=== PATIENT | male | born 1975 | race African-American/Black ===

== ENCOUNTER 2017-08-14 06:59 | Day surgery (SDC) | payer OTHER ==
--- NOTE | 2017-08-10 09:16 | HP ---
PREOPERATIVE HISTORY AND PHYSICAL: DATE OF ADMISSION/SURGERY: 08/14/17 - [facility] DATE OF OFFICE VISIT/ENCOUNTER: 08/08/17 ATTENDING SURGEON: Betty Tuttle MD * (DICTATED BY ANABEL TREVINO) PROCEDURE: Right wrist mass excision x2. CHIEF COMPLAINT: Right wrist masses. HISTORY OF PRESENT ILLNESS: This is a 42-year-old male, who complains of 2 lumps on the dorsal aspect of his right hand, one is quite large and other one is a bit smaller. They are bothersome and he would like to have them removed. They are not painful. He does not recall any injury to the wrist. 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 He denies any numbness or tingling associated with the masses. PAST MEDICAL HISTORY: Unremarkable. PAST SURGICAL HISTORY: None. CURRENT MEDICATIONS: None. ALLERGIES: No known drug allergies. FAMILY MEDICAL HISTORY: Breast cancer, hypertension, diabetes. SOCIAL HISTORY: The patient is typically employed as a hernandez, currently laid off. He is a former smoker. He quit on 06/04/17. Prior to that, he smoked approximately a pack per week and did so for 10 to 15 years. He denies recreational drug use. He drinks alcohol on occasion, typically on the weekends. REVIEW OF SYSTEMS: General: Negative for fevers, chills, or night sweats. No known anesthesia problems. HEENT: Negative for headache, lightheadedness, or syncopal episodes. Integumentary: Negative for abrasions, lesions, or open wounds. Cardiothoracic: Negative for hypertension, chest pain, palpitations, or edema. Pulmonary: Negative for shortness of breath with exertion, chronic cough, or COPD. GI: Negative for nausea, vomiting, diarrhea, constipation, or GERD. : Negative for nocturia, urinary frequency, urgency, history of UTIs, or kidney problems. Musculoskeletal: Positive for current complaint. Neurological: Negative for paresthesias, numbness, history of seizure, stroke, or epilepsy. Endocrine: Negative for diabetes or thyroid issues. Hematologic: Negative for easy bruising, anemia, excessive bleeding, or history of DVT. Infectious Disease: Negative for history of MRSA, hepatitis C, or HIV. PHYSICAL EXAMINATION GENERAL: Well-developed, well-nourished, 42-year-old male in no acute distress. VITAL SIGNS: Height is 5 feet 8 inches, weight 236 pounds. Pulse rate 78, blood pressure 122/78. HEENT: Normocephalic, atraumatic. Pupils are equal, round, and reactive to light and accommodation. Extraocular movements are intact. NECK: Supple. No palpable lymph nodes. Throat is clear. PULMONARY: Lungs are clear to auscultation bilaterally. No wheezes, rales, or rhonchi. CARDIOVASCULAR: Regular rate and rhythm. S1 and S2. No murmurs, rubs, or gallops. No edema. ABDOMEN: Positive bowel sounds, soft, nontender. NEUROLOGICAL: Alert and oriented x3. Cranial nerves II through XII are intact. MUSCULOSKELETAL: On exam of the right wrist, he has a large multilobulated cystic mass on the dorsal aspect of the wrist. There is no tenderness to palpation. The mass is firm, subcutaneous and mobile. He has good range of motion of the fingers with flexion and extension. He has also good motion in his wrist. SKIN: Intact. Neurovascular function is intact. IMAGING STUDIES: X-rays, AP, lateral, and oblique of the right wrist show the soft tissue mass, but no bony abnormality, except for an ulnar positive variance of 3 mm proximally. IMPRESSION: Right wrist dorsal ganglions. PLAN: The patient is scheduled to undergo a right wrist mass excision x2. He will return to the office 10 to 14 days postop for followup and suture removal. A prescription for Ultracet was e-scribed to the patient's pharmacy for postoperative pain management. ANABEL TREVINO [id number]/[facility] #: [id number] MAC
[~2017-08-14 06:59] MED LIST: Buffered Lidocaine 0.9% SYRIN* 5 ML/SYR SYRINGE INTRADERM ONE; Famotidine IV* 10 MG/ML 2 ML (20 mg) IV ONE
[2017-08-14] MEDS ORDERED: Famotidine IV* 10 MG/ML 2 ML (20 mg) ONE (07:07)
[2017-08-14] MEDS ORDERED: Propofol* 10 MG/ML 20 ML BTL IV PUSH ONE (07:49)
[2017-08-14] MEDS ORDERED: Ondansetron INJ* 2 MG/ML VIAL ONE (07:49)
[2017-08-14] MEDS ORDERED: fentaNYL* 50 MCG/ML 2 ML VIAL (100 MCG VIAL) ONE (07:49)
[2017-08-14] MEDS ORDERED: Midazolam* 1 MG/ML 5 ML VIAL (5 MG) ONE (07:49)
[2017-08-14] MEDS ORDERED: Lidocaine 2% PF * 5 ML VIAL ONE (07:49)
[2017-08-14] MEDS ORDERED: Ketorolac INJ* 30 MG/ML 1 ML VIAL ONE (07:49)
[2017-08-14] MEDS ORDERED: Lidocaine 1% INJ* 10 MG/ML 30 ML SDV ONE (08:03)
[2017-08-14] MEDS ORDERED: oxyCODONE/Acetamin 5/325 MG* TAB PO PRN (08:09)
[2017-08-14] MEDS ORDERED: Naloxone* 0.4 MG/ML 1 ML VIAL IV PRN (08:09)
[2017-08-14] MEDS ORDERED: Acetaminophen TAB* 325 MG PO PRN (08:09)
[2017-08-14 09:40] VITALS: BP 152/86
--- NOTE | 2017-08-14 13:53 | OP ---
DATE OF OPERATION: 08/14/17 [facility] DATE OF : 71 SURGEON: Betty Tuttle MD GROCERY BUYER: ANABEL Francis ANESTHESIA: Local MAC. PRE-OP DIAGNOSIS: Right wrist mass. POST-OP DIAGNOSIS: Right wrist mass. OPERATIVE PROCEDURE: Right wrist ganglion. ESTIMATED BLOOD LOSS: Zero. TOURNIQUET TIME: About 20 minutes. INDICATIONS FOR PROCEDURE: Dash is a 42-year-old male with a bothersome mass on the dorsal aspect of his right wrist. He presents for removal. DESCRIPTION OF PROCEDURE: The patient was brought to the operating room, was given a sedation anesthetic and a local infiltration of 10 cc of 1% plain lidocaine on the dorsal aspect of his right hand overlying the mass. The skin of his right upper extremity was prepped and draped in the usual sterile fashion. The hand and forearm were exsanguinated and the tourniquet elevated to 250 mmHg. A longitudinal incision was made, centered over the mass. We dissected bluntly through the subcutaneous tissue. The mass was a very large multilobular ganglion cyst, was carefully dissected away from the extensor tendons and down to the dorsal wrist joint capsule, was removed with a small portion of the joint capsule and then the edges of the capsule were cauterized with the Bovie. The wound was irrigated and the skin edge was reapproximated with 4-0 nylon suture. The wound was dressed with Xeroform, 4x4, Webril, and an Rodrigo wrap. The patient tolerated the procedure well and was brought to the recovery room in good condition. [id number]/[facility] #: [id number] [facility]
== END 2017-08-14 09:40 | disposition home or self-care (01) ==
LOC: OREAST 06:59
PROVIDERS: ATTEND Orthopaedic Surgery
DX: M67.431 Ganglion, right wrist (principal); Z87.891 Personal history of nicotine dependence
CPT/HCPCS: 88304; J1885; J2250; J2405; J2704; J3010

== ENCOUNTER 2017-09-09 02:09 | Emergency (ER) | payer OTHER ==
[2017-09-09 02:42] LABS: ABS Basophils 0.1 10^3/ul (0-0.2); ABS Eosinophils 0 10^3/ul (0-0.6); ABS Lymphocytes 2.1 10^3/ul (1.0-4.8); ABS Monocytes 0.5 10^3/ul (0-0.8); ABS Neutrophils 9.6 10^3/ul (1.5-7.7); ABS Nucleated RBC 0 10^3/ul; Eosinophil % 0 % (0-6); Hematocrit 43 % (42-52); Hemoglobin 14.5 g/dl (14.0-18.0); Lymphocyte % 16.8 % (25-47); Mean Corpuscular HGB Conc 34 g/dl (31-36); Mean Corpuscular Hemoglobin 30 pg (27-31); Mean Corpuscular Volume 90 fL (80-94); Mean Platelet Volume 9.2 um3 (7.4-10.4); Nucleated Red Blood Cells % 0.1; Platelet Count 232 10^3/ul (150-450); Red Blood Count 4.78 10^6/ul (4.0-5.4); Red Cell Distribution Width 14 % (10.5-15); White Blood Count 12.3 10^3/ul (3.5-10.8)
[2017-09-09 02:46] LABS: EGFR Non-African American 63.3 (>60)
[2017-09-09] MEDS ORDERED: Metoclopramide IV* 5 MG/ML 2 ML VIAL IV SLOW PU ONE (04:44)
[2017-09-09] MEDS ORDERED: NS 0.9% 1000 ML* 1,000 ML IV ONE (04:44)
[2017-09-09] MEDS ORDERED: Morphine VIAL* 4 MG/ML VIAL (1 ml vial) IV ONE (04:45)
[2017-09-09] MEDS ORDERED: Iohexol 300* (CONTRAST) 10 ML SDV IV ONE (06:24)
--- NOTE | 2017-09-09 06:46 | ED ---
Suzanne Fernandez Emily, scribed for Chivo Rai MD on 09/09/17 at 0507 . Abdominal Pain/Male - HPI Summary HPI Summary: This patient is a 42 year old M presenting to [facility] with a chief complaint of RLQ and LLQ abd pain that began [place]OLK SPRAY DRIER. The patient rates the pain 10/10 in severity. Symptoms aggravated by nothing. Symptoms alleviated by nothing. Patient reports N/V/D. Pt reports that he believes this is food poisoning, but states the only food he has consumed recently was a homemade burrito. - History of Current Complaint Chief Complaint: EDAbdPain Stated Complaint: ABD PAIN Time Seen by Provider: 09/09/17 04:38 Hx Obtained From: Patient Onset/Duration: Sudden Onset, Lasting Hours, Still Present Timing: Constant Severity Initially: Severe Severity Currently: Severe Pain Intensity: 10 Pain Scale Used: 0-10 Numeric Location: Diffuse Aggravating Factor(s): Nothing Alleviating Factor(s): Nothing Associated Signs And Symptoms: Positive: Nausea, Vomiting, Diarrhea - Allergies/Home Medications Allergies/Adverse Reactions: Allergies Allergy/AdvReac Type Severity Reaction Status Date / Time No Known Allergies Allergy Verified 08/14/17 07:13 PMH/Surg Hx/FS Hx/Imm Hx Previously Healthy: No Musculoskeletal History: Reports: Other Musculoskeletal History Sensory History: Denies: Hx Contacts or Glasses, Hx Hearing Aid Opthamlomology History: Denies: Hx Contacts or Glasses - Surgical History Hx Anesthesia Reactions: No Infectious Disease History: No Infectious Disease History: Denies: Traveled Outside the [place] in Last 30 Days - Family History Known Family History: Positive: Hypertension - Social History Occupation: Employed Full-time Lives: With Family Alcohol Use: Occasionally Substance Use Type: Reports: None Smoking Status (MU): Former Smoker Have You Smoked in the Last Year: Yes Review of Systems Negative: Fever Positive: Abdominal Pain, Vomiting, Diarrhea, Nausea All Other Systems Reviewed And Are Negative: Yes Physical Exam - Summary Physical Exam Summary: VITAL SIGNS: Reviewed. GENERAL: ~Patient is a well-developed and nourished male who is lying comfortable in the stretcher. Patient is not in any acute respiratory distress. HEAD AND FACE: No signs of trauma. No ecchymosis, hematomas or skull depressions. No sinus tenderness. EYES: PERRLA, EOMI x 2, No injected conjunctiva, no nystagmus. EARS: Hearing grossly intact. Ear canals and tympanic membranes are within normal limits. MOUTH: Oropharynx within normal limits. NECK: Supple, trachea is midline, no adenopathy, no JVD, no carotid bruit, no c- spine tenderness, neck with full ROM. CHEST: Symmetric, no tenderness at palpation LUNGS: Clear to auscultation bilaterally. No wheezing or crackles. CVS: Regular rate and rhythm, S1 and S2 present, no murmurs or gallops appreciated. ABDOMEN: Soft, Diffuse tenderness. No signs of distention. No rebound no guarding, and no masses palpated. Bowel sounds are normal. EXTREMITIES: FROM in all major joints, no edema, no cyanosis or clubbing. NEURO: Alert and oriented x 3. No acute neurological deficits. Speech is normal and follows commands. SKIN: Dry and warm Triage Information Reviewed: Yes Vital Signs On Initial Exam: Initial Vitals Temp Pulse Resp BP Pulse Ox 98.1 F 62 16 154/82 96 09/09/17 02:12 09/09/17 02:12 09/09/17 02:12 09/09/17 02:12 09/09/17 02:12 Vital Signs Reviewed: Yes Diagnostics - Vital Signs Vital Signs Temp Pulse Resp BP Pulse Ox 09/09/17 02:12 98.1 F 62 16 154/82 96 - Laboratory Lab Results: Lab Results 09/09/17 09/09/17 09/09/17 Range/Units 02:22 02:22 02:22 WBC 12.3 H (3.5-10.8) 10^3/ul RBC 4.78 (4.0-5.4) 10^6/ul Hgb 14.5 (14.0-18.0) g/dl Hct 43 (42-52) % MCV 90 (80-94) fL MCH 30 (27-31) pg MCHC 34 (31-36) g/dl RDW 14 (10.5-15) % Plt Count 232 (150-450) 10^3/ul MPV 9.2 (7.4-10.4) um3 Neut % (Auto) 77.8 (38-83) % Lymph % (Auto) 16.8 L (25-47) % Sioux % (Auto) 4.3 (0-7) % Eos % (Auto) 0 (0-6) % Baso % (Auto) 1.1 (0-2) % Absolute Neuts (auto) 9.6 H (1.5-7.7) 10^3/ul Absolute Lymphs (auto) 2.1 (1.0-4.8) 10^3/ul Absolute Monos (auto) 0.5 (0-0.8) 10^3/ul Absolute Eos (auto) 0 (0-0.6) 10^3/ul Absolute Basos (auto) 0.1 (0-0.2) 10^3/ul Absolute Nucleated RBC 0 10^3/ul Nucleated RBC % 0.1 Sodium 133 L (139-145) mmol/L Potassium 3.9 (3.5-5.0) mmol/L Chloride 97 L (101-111) mmol/L Carbon Dioxide 25 (22-32) mmol/L Anion Gap 11 (2-11) mmol/L BUN 14 (6-24) mg/dL Creatinine 1.24 H (0.67-1.17) mg/dL Est GFR ( Amer) 81.4 (>60) Est GFR (Non-Af Amer) 63.3 (>60) BUN/Creatinine Ratio 11.3 (8-20) Glucose 153 H (70-100) mg/dL Lactic Acid 2.0 (0.5-2.0) mmol/L Calcium 9.8 (8.6-10.3) mg/dL Total Bilirubin 1.20 H (0.2-1.0) mg/dL AST 28 (13-39) U/L ALT 32 (7-52) U/L Alkaline Phosphatase 44 (34-104) U/L C-Reactive Protein 3.65 (< 5.00) mg/L Total Protein 8.8 (6.4-8.9) g/dL Albumin 5.0 (3.2-5.2) g/dL Globulin 3.8 (2-4) g/dL Albumin/Globulin Ratio 1.3 (1-3) Lipase < 10 L (11.0-82.0) U/L Result Diagrams: 09/09/17 02:22 09/09/17 02:22 Lab Statement: Any lab studies that have been ordered have been reviewed, and results considered in the medical decision making process. Abdominal Pain Fem Course/Dx - Course Course Of Treatment: This patient is a 42 year old M presenting to [facility] with a chief complaint of RLQ and LLQ abd pain that began Y[place]K SPRAY DRIER. Pt will be signed out to Dr. Haynes upon shift change pending CT report and disposition - Diagnoses Provider Diagnoses: Abdominal pain Discharge - Sign-Out/Discharge Documenting (check all that apply): Sign-Out Patient Signing out patient TO: Pantera Haynes - Discharge Plan Condition: Stable Discharge Disposition Comment: Sign out to Dr. Haynes upon shift change pending CT report and dispo Referrals: No Primary Care Phys,NOPCP [Primary Care Provider] - The documentation as recorded by the Suzanne monique Emily accurately reflects the service I personally performed and the decisions made by me, Chivo Rai MD.
[2017-09-09 06:47] VITALS: BP 135/90
--- NOTE | 2017-09-09 08:00 | RAD ---
INDICATION: Abdominal pain. COMPARISON: There are no prior studies available for comparison. TECHNIQUE: A CT scan of the abdomen and pelvis was performed with intravenous and oral contrast following intravenous injection of 143 ml of Omnipaque 300 nonionic contrast. Contiguous axial sections were obtained from the lung bases through the symphysis pubis. Images were reconstructed in the coronal and sagittal planes. FINDINGS: The lung bases are clear. No pleural effusion is present. The liver and spleen are normal in size. The liver is decreased in attenuation consistent with fatty infiltration. No focal normality is seen. No calcified gallstones are noted. The pancreas appears to be within normal limits. The kidneys and adrenal glands are normal in size. No hydronephrosis is seen. No significant focal renal abnormality is seen. The aorta is normal in caliber and demonstrates homogeneous contrast opacification. No significant enlarged retroperitoneal lymph nodes are seen. The stomach, small and large bowel appear nondistended. The appendix is within normal limits. Note is made of a couple cecal diverticuli and a few scattered diverticuli within the sigmoid colon. There is no evidence for diverticulitis. There is suggesting of mild circumferential thickening of the wall of the ascending and transverse colon possibly indicating mild colitis. No free intraperitoneal air or fluid is seen. There is mild focal sclerosis present in the superior portions of the femoral heads suspicious for developing osteonecrosis less likely osteoarthritis. The results of this examination were discussed with Dr. Haynes. IMPRESSION: 1. MILD THICKENING OF THE WALL OF THE ASCENDING AND TRANSVERSE COLON SUGGESTING THE POSSIBILITY OF COLITIS. 2. HEPATIC STEATOSIS. 3. POSSIBLE BILATERAL AVASCULAR NECROSIS OF THE FEMORAL HEADS. THIS COULD BE FURTHER EVALUATED WITH AN MRI OF THE HIPS.
--- NOTE | 2017-09-09 08:39 | ED ---
Progress - Progress Note Progress Note: PATIENT SEEN BY DR PETERSON THIS AM AND DISCHARGED. DR WILSON, RADIOLOGY CALLED WITH [facility] [place] CT READ. HE READS POSSIBLE COLITIS AND B/L HIP AVASCULAR NECROSIS. Course/Dx - Course Course Of Treatment: I CALLED THIS AM AND SPOKE WITH MR ROLLINS'S PARTNER. I TOLD HER OF THE POSSIBLE COLITIS AND AVASCULAR NECROSIS. SHE WILL TELL MR ROLLINS AND PLAN TO F/U WITH HIS PMD, DR KNOWLES. I ALSO DISCUSSED RETURNING TO THE ED IF WORSE OR NO IMPROVEMENT. - Diagnoses Provider Diagnoses: Abdominal pain Discharge - Sign-Out/Discharge Documenting (check all that apply): Discharge/Admit/Transfer - Discharge Plan Condition: Stable Disposition: HOME Patient Education Materials: Gastroenteritis (ED) Referrals: No Primary Care Phys,NOPCP [Medical Doctor] - - Billing Disposition and Condition Condition: STABLE Disposition: HOME
== END 2017-09-09 07:30 | disposition home or self-care (01) ==
LOC: ED 02:09
DX: R10.84 Generalized abdominal pain (principal); R11.2 Nausea with vomiting, unspecified; R19.7 Diarrhea, unspecified; Z87.891 Personal history of nicotine dependence
CPT/HCPCS: 36415; 74177; 80053; 83605; 83690; 85025; 86140; 96374; 96375; 99282; J2270; J2765; Q9967

== ENCOUNTER 2017-10-01 00:54 | Emergency (ER) | payer OTHER ==
[2017-10-01] MEDS ORDERED: NS 0.9% 1000 ML* 2,000 ML IV ONE (01:53)
[2017-10-01] MEDS ORDERED: Metoclopramide IV* 5 MG/ML 2 ML VIAL IV ONE (01:53)
[2017-10-01] MEDS ORDERED: Pantoprazole IV* 40 MG IV ONE (01:53)
[2017-10-01] MEDS ORDERED: Diphenoxylat/Atrop 2.5-0.025M* 1 TAB PO ONE (01:54)
[2017-10-01] MEDS ORDERED: Morphine INJ* 4 MG/ML 1 ML CARPUJECT IV ONE (01:54)
[2017-10-01] MEDS ORDERED: Morphine VIAL* 4 MG/ML VIAL (1 ml vial) IV ONE (02:10)
[2017-10-01 02:18] LABS: ABS Basophils 0.1 10^3/ul (0-0.2); ABS Eosinophils 0 10^3/ul (0-0.6); ABS Lymphocytes 1.5 10^3/ul (1.0-4.8); ABS Monocytes 0.3 10^3/ul (0-0.8); ABS Neutrophils 7.3 10^3/ul (1.5-7.7); ABS Nucleated RBC 0 10^3/ul; Eosinophil % 0 % (0-6); Hematocrit 44 % (42-52); Hemoglobin 14.8 g/dl (14.0-18.0); Lymphocyte % 16.1 % (25-47); Mean Corpuscular HGB Conc 34 g/dl (31-36); Mean Corpuscular Hemoglobin 31 pg (27-31); Mean Corpuscular Volume 91 fL (80-94); Mean Platelet Volume 9.2 um3 (7.4-10.4); Nucleated Red Blood Cells % 0; Platelet Count 219 10^3/ul (150-450); Red Cell Distribution Width 14 % (10.5-15); White Blood Count 9.3 10^3/ul (3.5-10.8)
[2017-10-01 02:33] LABS: EGFR Non-African American 67.7 (>60)
--- NOTE | 2017-10-01 03:33 | ED ---
Greg Fernandez Rebecca, scribed for Chivo Rai MD on 10/01/17 at 0154 . Abdominal Pain/Male - HPI Summary HPI Summary: Pt is a 42 y/o M who presents to ED c/o abdominal pain with N/V/D. 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 Abdominal pain is in the bilateral lower abdomen and on triage was severe, ranked 10/10. Sx aggravated and alleviated by nothing. Notes that his last episode of emesis contained blood. Reports eating fresh jerk chicken last night. - History of Current Complaint Chief Complaint: EDNauseaVomitDiarrh Stated Complaint: V/D Time Seen by Provider: 10/01/17 01:45 Hx Obtained From: Patient Onset/Duration: Lasting Hours, Still Present Severity Currently: Severe Pain Intensity: 10 Pain Scale Used: 0-10 Numeric Location: Other - Bilateral lower abdomen Aggravating Factor(s): Nothing Alleviating Factor(s): Nothing Associated Signs And Symptoms: Positive: Nausea, Vomiting, Diarrhea - Allergies/Home Medications Allergies/Adverse Reactions: Allergies Allergy/AdvReac Type Severity Reaction Status Date / Time No Known Allergies Allergy Verified 08/14/17 07:13 PMH/Surg Hx/FS Hx/Imm Hx Endocrine/Hematology History: Denies: Hx Diabetes Cardiovascular History: Denies: Hx Hypertension History: Denies: Hx Renal Disease Musculoskeletal History: Reports: Other Musculoskeletal History Sensory History: Denies: Hx Contacts or Glasses, Hx Hearing Aid Opthamlomology History: Denies: Hx Contacts or Glasses - Surgical History Hx Anesthesia Reactions: No Infectious Disease History: No Infectious Disease History: Denies: Traveled Outside the [place] in Last 30 Days - Family History Known Family History: Positive: Hypertension - Social History Alcohol Use: Occasionally Substance Use Type: Reports: None Smoking Status (MU): Former Smoker Have You Smoked in the Last Year: Yes Review of Systems Negative: Fever Positive: Abdominal Pain, Vomiting, Diarrhea, Nausea All Other Systems Reviewed And Are Negative: Yes Physical Exam - Summary Physical Exam Summary: VITAL SIGNS: Reviewed. GENERAL: ~Patient is a well-developed and nourished male who is lying comfortable in the stretcher. Patient is not in any acute respiratory distress. HEAD AND FACE: No signs of trauma. No ecchymosis, hematomas or skull depressions. No sinus tenderness. EYES: PERRLA, EOMI x 2, No injected conjunctiva, no nystagmus. EARS: Hearing grossly intact. Ear canals and tympanic membranes are within normal limits. MOUTH: Oropharynx within normal limits. NECK: Supple, trachea is midline, no adenopathy, no JVD, no carotid bruit, no c- spine tenderness, neck with full ROM. CHEST: Symmetric, no tenderness at palpation LUNGS: Clear to auscultation bilaterally. No wheezing or crackles. CVS: Regular rate and rhythm, S1 and S2 present, no murmurs or gallops appreciated. ABDOMEN: Soft, non-tender. No signs of distention. No rebound no guarding, and no masses palpated. Bowel sounds are normal. EXTREMITIES: FROM in all major joints, no edema, no cyanosis or clubbing. NEURO: Alert and oriented x 3. No acute neurological deficits. Speech is normal and follows commands. SKIN: Dry and warm Triage Information Reviewed: Yes Vital Signs On Initial Exam: Initial Vitals Temp Pulse Resp BP Pulse Ox 96.5 F 64 20 162/105 97 10/01/17 00:55 10/01/17 00:55 10/01/17 00:55 10/01/17 00:55 10/01/17 00:55 Vital Signs Reviewed: Yes Diagnostics - Vital Signs Vital Signs Temp Pulse Resp BP Pulse Ox 10/01/17 00:55 96.5 F 64 20 162/105 97 - Laboratory Result Diagrams: 10/01/17 02:06 10/01/17 02:06 Lab Statement: Any lab studies that have been ordered have been reviewed, and results considered in the medical decision making process. Re-Evaluation - Re-Evaluation First Eval Re-Evaluation Time: 03:17 Change: Improved Comment: Discussed results and D/C. 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 Notes that his last episode of emesis contained blood. Reports eating fresh jerk chicken last night. Blood work was done. In the ED course, pt received Lomotil, Reglan, Protonix, Morphine and fluids which improved sx. Pt will be D/C to home with Dx of gastroenteritis with a follow up with his PCP and Rx for Reglan. He understands and agrees. - Diagnoses Provider Diagnoses: Gastroenteritis Discharge - Sign-Out/Discharge Documenting (check all that apply): Discharge/Admit/Transfer - Discharge - Discharge Plan Condition: Stable Disposition: HOME Prescriptions: Metoclopramide TAB* [Reglan TAB*] 10 mg PO Q6H PRN #20 tab PRN Reason: Nausea/Vomiting Patient Education Materials: Gastroenteritis (ED) Referrals: Vikas Dickerson MD [Primary Care Provider] - 3 Days Additional Instructions: RETURN TO ED FOR ANY NEW OR WORSENING SYMPTOMS. The documentation as recorded by the Greg monique Rebecca accurately reflects the service I personally performed and the decisions made by , Chivo Rai MD.
[2017-10-01 05:54] VITALS: BP 154/97
== END 2017-10-01 06:17 | disposition home or self-care (01) ==
LOC: ED 00:54
DX: K52.9 Noninfective gastroenteritis and colitis, unspecified (principal); Z87.891 Personal history of nicotine dependence
CPT/HCPCS: 36415; 80053; 82150; 83690; 83735; 85025; 86140; 96361; 96374; 96375; 99283; A9270-GY; J2270; J2765

== ENCOUNTER 2018-02-18 10:08 | Emergency (ER) | payer OTHER ==
[2018-02-18 10:34] VITALS: BP 147/90
--- NOTE | 2018-02-18 12:13 | RAD ---
INDICATION: Left rib injury. COMPARISON: Comparison is made with a prior chest x-ray study from January 26, 2015. TECHNIQUE: 5 views of the left ribs and dual-energy PA views of the chest were obtained. FINDINGS: There is a slightly displaced fracture of the left lateral eighth rib. No other fractures are seen. There is minimal atelectasis at the left lung base. The lungs are otherwise clear. No pneumothorax or pleural effusion is seen. The heart is within normal limits in size. Mediastinal contours appear normal. IMPRESSION: SLIGHTLY DISPLACED FRACTURE OF THE LEFT LATERAL EIGHTH RIB.
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
== END 2018-02-18 12:49 | disposition home or self-care (01) ==
LOC: UCEAST 10:08
DX: S22.32XA Fracture of one rib, left side, initial encounter for closed fracture (principal); F17.210 Nicotine dependence, cigarettes, uncomplicated; W50.1XXA Accidental kick by another person, initial encounter; Y92.9 Unspecified place or not applicable
CPT/HCPCS: 99212; G0463

== ENCOUNTER 2019-02-06 08:59 | Emergency (ER) | payer BC, OTHER ==
[2019-02-06 09:19] VITALS: BP 144/74
--- NOTE | 2019-02-06 10:12 | UC ---
Hand/Wrist HPI - HPI Summary HPI Summary: Patient presents to urgent care for evaluation of a cyst on his left wrist with pain into his thumb. Patient's right-hand dominant. Patient with a history of ganglion cyst. Dr. Severino removal from his right wrist. Patient states that he' s had for approximately 6 months. Patient states more recently, all last week, he's had some radiation to the thumb. No weakness. Patient has taken 600 mg of Motrin intermittently with mild improving. No fevers or chills. No redness. Patient is currently laid off from work. Medications reviewed this visit. - History Of Current Complaint Chief Complaint: UCUpperExtremity Stated Complaint: LUMP ON WRIST Time Seen by Provider: 02/06/19 10:06 Hx Obtained From: Patient ?: No Onset/Duration: Gradual Onset Severity Initially: Moderate Severity Currently: Moderate Pain Intensity: 7 - Allergies/Home Medications Allergies/Adverse Reactions: Allergies Allergy/AdvReac Type Severity Reaction Status Date / Time No Known Allergies Allergy Verified 02/06/19 09:20 PMH/Surg Hx/FS Hx/Imm Hx Previously Healthy: Yes - Surgical History Surgical History: None - Family History Known Family History: Positive: Hypertension, Non-Contributory - Social History Occupation: Unemployed Lives: With Family Alcohol Use: Weekly Substance Use Type: None Smoking Status (MU): Light Every Day Tobacco Smoker Type: Cigarettes Have You Smoked in the Last Year: Yes When Did the Patient Quit Smoking/Using Tobacco: 2018 Review of Systems All Other Systems Reviewed And Are Negative: Yes Constitutional: Positive: Negative Skin: Positive: Other - Cyst on left wrist Neurological: Positive: Paresthesia Is Patient Immunocompromised?: No Physical Exam - Summary Physical Exam Summary: Vital Signs Reviewed: Yes A+Ox3, no distress Eyes: Conjunctiva Clear ENT: Hearing grossly normal neck: supple Respiratory: Positive: No respiratory distress, No accessory muscle use Cardiovascular: skin color reflect adequate perfusion 2+ radial, 2+ ulnar CBT < 2 sec all digits Musculoskeletal Exam: HOWELL x 4 without difficulty full AROM elbow, wrist Neurological: Positive: Alert, ambulatory without difficulty + thumb up, a ok, finger cross, finger spread Psychological: Positive: Normal Response To examiner Skin: Positive: no rash, no ecchymosis, pt with apparent ganglion cyst left hand - 2x1cm, no erythema, drainage, mild discomfort Vital Signs: Initial Vital Signs Temp 97.4 F 02/06/19 09:15 Pulse 63 02/06/19 09:15 Resp 18 02/06/19 09:15 BP 144/74 02/06/19 09:15 Pulse Ox 100 02/06/19 09:15 Hand/Wrist Course/Dx - Course Course Of Treatment: Patient presents to urgent care for evaluation of discomfort related to getting consistent with left arm. Patient states he's had it for approximately 6 months. Patient reports radiation to his left thumb. Patient's right-hand dominant. Patient has taken some Motrin with little improvement. On exam vital signs are stable. Patient was apparently lives the dorsum of his left distal forearm. Patient with good range of motion and strength in all fingers. Patient good cap refill. Will place patient in thumb spica. Motrin for pain. Recommendation follow up with Dr. Param singh previously removed from his right hand. Patient states understanding agreement with plan. BP mildly elevated- history of similar - Differential Dx/Diagnosis Provider Diagnosis: Ganglion cyst of finger of left hand Discharge ED - Sign-Out/Discharge Documenting (check all that apply): Patient Departure All imaging exams completed and their final reports reviewed: No Studies - Discharge Plan Condition: Stable Disposition: HOME Patient Education Materials: Ganglion Cysts (ED) Referrals: Vikas Dickerson MD [Primary Care Provider] - Betty Tuttle MD [Medical Doctor] - Additional Instructions: -wear splint for comfort and support - Okay to alternate ibuprofen (Advil, Motrin) and Tylenol (acetaminophen) every 3 hours for pain or fever. Take with food. Do NOT take for more than 4-5 days. - Contact Dr. Tuttle to schedule an appointment for further evaluation and treatment plan - Billing Disposition and Condition Condition: STABLE Disposition: Home
== END 2019-02-06 10:25 | disposition home or self-care (01) ==
LOC: UCEAST 08:59
DX: M67.442 Ganglion, left hand (principal); F17.210 Nicotine dependence, cigarettes, uncomplicated
CPT/HCPCS: 99212; G0463

== ENCOUNTER → 2019-02-18 09:48 | Day surgery (SDC) | payer BC ==
--- NOTE | 2019-02-12 14:49 | HP ---
PREOPERATIVE HISTORY AND PHYSICAL: DATE OF SURGERY/ADMISSION: 02/18/19 [facility] DATE OF OFFICE VISIT/ENCOUNTER: 02/10/19 ATTENDING SURGEON: Betty Tuttle MD.* (DICTATED BY ANABEL TREVINO) PROCEDURE: Ganglion cyst excision, left wrist. HISTORY OF PRESENT ILLNESS: This is a 43-year-old male who has a lump on the dorsal aspect of his left wrist that has been present for approximately 2 weeks. He denies any injury to the wrist. He denies any numbness or tingling. He in the past had a ganglion cyst excised from his right wrist by Dr. Tuttle and did well well with that. He is now interested in having the left wrist cyst removed surgically. PAST MEDICAL HISTORY: Unremarkable. PAST SURGICAL HISTORY: Right wrist ganglion cyst excision. CURRENT MEDICATIONS: None. ALLERGIES: No known drug allergies. FAMILY HISTORY: Breast cancer, hypertension, diabetes. SOCIAL HISTORY: The patient is typically employed as a hernandez, but currently laid off. He is a current smoker of approximately 4 to 5 cigarettes per day. He denies recreational drug use. He drinks alcohol on occasion. REVIEW OF SYSTEMS: Negative for general, cephalic, cardiovascular, respiratory , GI, , other musculoskeletal, integumentary, endocrine, neurologic, and hematologic symptoms. Infectious Disease: Negative for MRSA, hepatitis C, and HIV. PHYSICAL EXAMINATION GENERAL: Well-developed, well-nourished 43-year-old male in no acute distress. VITAL SIGNS: Height 5 feet 8 inches, weight 236 pounds, pulse rate 78, blood pressure 136/78. HEENT: Normocephalic, atraumatic. Pupils are equal, round, and reactive to light and accommodation. Extraocular movements are intact. Throat is clear. NECK: Supple. No palpable lymph nodes. PULMONARY: Lungs are clear to auscultation bilaterally. No wheezes, rales, or rhonchi. CARDIOVASCULAR: Regular rate and rhythm. S1 and S2. No murmurs, rubs, or gallops. No edema. ABDOMEN: Positive bowel sounds. Soft and nontender. NEUROLOGICAL: Alert and oriented x3. Cranial nerves II through XII are intact. Sensation is intact to light touch. MUSCULOSKELETAL: On exam of his left wrist, there is a cystic mass at the dorsal aspect of the radial carpal joint. It is tender to palpation. He has good range of motion, but pain in the wrist at the extreme of extension. He can make a full fist. Skin is intact. Neurovascular function is intact. IMAGING STUDIES: AP, lateral and oblique of the left wrist showed no bony abnormality IMPRESSION: Let dorsal wrist ganglion. PLAN: The patient is scheduled to undergo a ganglion cyst excision, left wrist with Dr. Tuttle on 02/18/19. He will return to the office 10 days postoperative for followup and suture removal. A prescription for tramadol was e-scribed to the patient's pharmacy for postoperative pain management. ANABEL TREVINO [id number]/[facility] #: [id number] MAC
[~2019-02-18 09:48] MED LIST changes: -Buffered Lidocaine 0.9% SYRIN* 5 ML/SYR SYRINGE INTRADERM ONE; +Buffered Lidocaine 1% SYRIN* 1 ML/SYRINGE INTRADERM ONE; -Famotidine IV* 10 MG/ML 2 ML (20 mg) IV ONE; +Ibuprofen TAB* 600 MG ONE; +Lactated Ringers 1000 ML Bag* 1,000 ML IV SCH; +Lidocaine 1% INJ* 10 MG/ML 30 ML SDV ONE; +Midazolam* 1 MG/ML 2 ML VIAL (2 MG) ONE; +Naloxone* 0.4 MG/ML 1 ML VIAL IV PRN; +fentaNYL* 50 MCG/ML 2 ML VIAL (100 MCG VIAL) ONE
[2019-02-18 12:32] VITALS: BP 134/96
--- NOTE | 2019-02-18 22:02 | OP ---
DATE OF OPERATION: 02/18/19 [facility] DATE OF : [birth year] SURGEON: Betty Tuttle MD FLIGHT ENGINEER INSPECTOR: ANABEL Francis ANESTHESIA: Local MAC. PRE-OP DIAGNOSIS: Left wrist ganglion cyst. POST-OP DIAGNOSIS: Left wrist ganglion cyst. OPERATIVE PROCEDURE: Removed left wrist ganglion cyst. INDICATIONS: Dash is a 43-year-old male who has a painful mass on the dorsal aspect of his left wrist. He presents for removal. ESTIMATED BLOOD LOSS: Zero. TOURNIQUET TIME: About 15 minutes. DESCRIPTION OF PROCEDURE: The patient was brought to the operating room, was given a sedation anesthetic and a local infiltration of 10 cc of 1% plain lidocaine on the dorsal aspect of his left wrist. The skin of his left upper extremity was prepped and draped in the usual sterile fashion. The hand and forearm were exsanguinated and the tourniquet elevated to 250 mmHg. A transverse incision was made centered over the mass. We dissected bluntly through the subcutaneous tissue. The extensor tendons were retracted by the ophthalmology surgical technician, Rebecca Ott. The mass was traced down with its stalk to the dorsal aspect of the radiocarpal joint and its connection to the scapholunate ligament. It was removed with a portion of the dorsal wrist capsule and then the edges of the capsule and the dorsal aspect of the scapholunate ligament were cauterized with Bovie. The wound was irrigated and the skin edges reapproximated with 4-0 nylon suture. The wound was dressed with Xeroform, 4x4, Webril, and an Rodrigo wrap. The patient tolerated the procedure well and was brought to the recovery room in good condition. [id number]/[facility] #: [id number] [facility]
== END | disposition home or self-care (01) ==
LOC: OREAST 09:48
PROVIDERS: ATTEND Orthopaedic Surgery
DX: M67.432 Ganglion, left wrist (principal); F17.210 Nicotine dependence, cigarettes, uncomplicated; J45.909 Unspecified asthma, uncomplicated
CPT/HCPCS: 88304; A9270-GY; J2250; J3010

== ENCOUNTER 2019-03-16 07:09 | Emergency (ER) | payer BC ==
--- NOTE | 2019-03-16 07:14 | UC ---
UC General HPI - HPI Summary HPI Summary: Pleasant 43 yo gentleman c/o n/v/abd pain, starting yesterday. Has not been able to keep anything down since yesterday. No fever. + chills. No rash. No cough / sob / cp. No dysuria, but less urination since sx started. No melena / brbrr, stool reports as yellow green watery. No hx abd sx No DM - History of Current Complaint Stated Complaint: VOMITING Time Seen by Provider: 03/16/19 07:12 Hx Obtained From: Patient - Allergy/Home Medications Allergies/Adverse Reactions: Allergies Allergy/AdvReac Type Severity Reaction Status Date / Time No Known Allergies Allergy Verified 03/16/19 07:18 Home Medications: Home Medications traMADol TAB* [Ultram*] 50 mg PO Q6HR PRN 03/16/19 [History Confirmed 03/16/19] PMH/Surg Hx/FS Hx/Imm Hx Previously Healthy: Yes - Surgical History Surgical History: Yes Surgery Procedure, Year, and Place: right wrist ganglion cyst removed. tonsillectomy - Family History Known Family History: Positive: Hypertension, Non-Contributory - Social History Alcohol Use: Occasionally Substance Use Type: None Smoking Status (MU): Light Every Day Tobacco Smoker Type: Cigarettes Amount Used/How Often: 4 cigarettes a day maybe Have You Smoked in the Last Year: Yes When Did the Patient Quit Smoking/Using Tobacco: 2018 Review of Systems All Other Systems Reviewed And Are Negative: Yes Constitutional: Positive: Fatigue Skin: Positive: Negative Eyes: Positive: Negative ENT: Positive: Other - mmdry Respiratory: Positive: Negative Cardiovascular: Positive: Negative Gastrointestinal: Positive: Other - see hpi Genitourinary: Positive: Other - see hpi Motor: Positive: Negative Neurovascular: Positive: Negative Musculoskeletal: Positive: Negative Neurological: Positive: Negative Psychological: Positive: Negative Is Patient Immunocompromised?: No Physical Exam Triage Information Reviewed: Yes Appearance: Well-Nourished, Pain Distress Vital Signs Reviewed: Yes Eye Exam: Normal ENT: Positive: TM dull, Other - mm dry Neck exam: Normal Neck: Positive: Supple, Nontender Respiratory Exam: Normal Respiratory: Positive: Chest non-tender, Lungs clear, Normal breath sounds, No respiratory distress Cardiovascular Exam: Normal Cardiovascular: Positive: RRR, No Murmur, Pulses Normal, Brisk Capillary Refill Abdominal Exam: Other - +hypoactive bs mild distended, soft, voluntary guarding Tender morgan BUQ's, some radiation R flank (?) No ada cvat Musculoskeletal Exam: Normal Musculoskeletal: Positive: Strength Intact - moves x 4 ext's Neurological Exam: Normal - grossly nonfocal Psychological Exam: Normal - conversing easily and appropriately. Course/Dx - Course Course Of Treatment: Acute abd pain, volume depletion. Recommend eval /tx in ED. D/w pt, he expresses understanding and agreement. He agrees to go via EMS. Reviewed urine dip in APERA BAGS. Dry, + micro blood. IV ordered, zofran po administered. Spoke with Dee extension service specialist in charge nurse at ED 19:50 - Diagnoses Provider Diagnosis: Dehydration, Acute abdominal pain Discharge ED - Sign-Out/Discharge Documenting (check all that apply): Patient Departure All imaging exams completed and their final reports reviewed: No Studies - Discharge Plan Condition: Guarded Disposition: ADMITTED TO [facility] Patient Education Materials: Dehydration (ED), Acute Abdominal Pain (ED) Referrals: Vikas Dickerson MD [Primary Care Provider] - - Billing Disposition and Condition Condition: GUARDED Disposition: Admitted to [facility]
--- OUTSIDE RECORDS SUMMARY | 2019-03-16 07:14 | XMS REPORT | Continuity of Care Document ---
:1975 External Reference #:[id number] Author Name Betty Tuttle M.D. 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 Tablets as needed pain For use after surgery Tramadol 1 tab by mouth 15tabs Betty Tuttle, 08/08/2017 Hydrochloride/Acetami every 4-6 hours M.D. nophen as needed pain 37.5-325mg Tablets Immunizations Description No Information Available Vital Signs Date Vital Result Comment 02/27/2019 9:59am Height 68 inches 5'8" Weight 236.00 lb BP Systolic 138 mmHg BP Diastolic 100 mmHg Respiratory Rate 16 /min Body Temperature 96.4 F Pain Level 7 BMI (Body Mass Index) 35.9 kg/m2 02/10/2019 10:04am Height 68 inches 5'8" Weight 236.00 lb Heart Rate 78 /min BP Systolic 136 mmHg BP Diastolic 78 mmHg Respiratory Rate 14 /min Pain Level 8 BMI (Body Mass Index) 35.9 kg/m2 Results Test Date Facility Test Result H/L Range Note Surgical 02/18/2019 [facility] Surgical SEE RESULT 1, [address] Pathology BELOW [place], [place] [id number] [phone] PDFReport [id number] <SEE NOTE> 1 [id number] 2 SEE RESULT BELOW Name: KIRAN ZHANG : [address]: Betty Tuttle MD Acct: [id number] Unit: [id number] AGE: 43 Location: [facility] Re02/18/19 SEX: M [place] [facility] [place]C: [id number] NORBERTO: 02/18/19- SUBM DR: Betty Tuttle MD REQ: [id number] RECD: 02/18/19 STATUS: SOUT _ ORDERED: LEVEL 3 COMMENTS: [id number] FINAL DIAGNOSIS Wrist, left, excision: -- Ganglion cyst. PRE-OPERATIVE DIAGNOSIS Ganglion left wrist GROSS DESCRIPTION The specimen is received in formalin labeled, Ganglion Left Wrist, and consists of a 1.9 x 1.2 x 1.0 cm griffith-white to pink shaggy rubbery fibrous tissue fragment. The cut surface is rubbery griffith-pink with scant mucus. The specimen is inked, serially sectioned and energy conservation representative sections are submitted in one cassette. Signed by and Reported on: Marcie Lopez MD 02/19/19 1420 END OF REPORT DEPARTMENT OF PATHOLOGY, [address] [place] [address] Curtis Muller M.D. Director [facility] # [id number] Procedures Date Code Description Status 02/18/2019 84476 Excision Ganglion Wrist/ Dorsal Or Volar; Primary Completed 02/18/201989290 Excision Ganglion Wrist/ Dorsal Or Volar; Primary Completed Medical Devices Description No Information Available Encounters Type Date Location Provider Dx Diagnosis Office Visit 02/10/2019 [facility] Ramakrishna [email or web address] Ganglion, left 9:30a at [place] wrist Assessments Date Code Description Provider 02/27/2019 [place] Ganglion, left wrist Betty Tuttle M.D. 02/18/2019 [email or web address] Ganglion, left wrist LEDY Francis 02/18/2019 [facility]ba, left wrist Betty Tuttle M.D. 02/10/2019 [place] Alba, left wrist Betty Tuttle M.D. Plan of Treatment Future Appointment(s):03/20/2019 9:30 am - LEDY Francis at [facility] at [id number]/27/2019 - [id number] Ganglion, left wristFollow up:Follow up: 3 weeks Functional Status Description No Information Available Mental Status Description No Information Available Referrals Description No Information Available
--- OUTSIDE RECORDS SUMMARY | 2019-03-16 07:14 | XMS REPORT | Continuity of Care Document ---
:1975 External Reference #:[id number] Author Name Betty Tuttle M.D. (transmitted by agent of provider Melchor Jimneez) Address [address] [place] [address] Care Team Providers Name Role Phone Patient's Choice Care Team Information Identification Clerk Unavailable Problems Description No Active Problems Social History Type Date Description Comments Sex Unknown ETOH Use Occasionally consumes alcohol Tobacco Use Start: Unknown End: Patient is a former smoker Unknown Smoking Status Reviewed: 02/10/19 Patient is a former smoker Exercise Type/Frequency Exercises regularly Allergies, Adverse Reactions, Alerts Description No Known Drug Allergies Medications Active Medications SIG Qnty Indications Ordering Provider Date Tramadol 1 tab by mouth 15tabs Betty Tuttle, 08/08/2017 Hydrochloride/Acetami every 4-6 hours M.D. nophen as needed pain 37.5-325mg Tablets Immunizations Description No Information Available Vital Signs Date Vital Result Comment 02/10/2019 10:04am Height 68 inches 5'8" Weight 236.00 lb Heart Rate 78 /min BP Systolic 136 mmHg BP Diastolic 78 mmHg Respiratory Rate 14 /min Pain Level 8 BMI (Body Mass Index) 35.9 kg/m2 09/12/2017 9:00am Height 68 inches 5'8" Weight 234.00 lb Heart Rate 72 /min BP Systolic 122 mmHg BP Diastolic 70 mmHg Respiratory Rate 16 /min Body Temperature 98.6 F Pain Level 0 BMI (Body Mass Index) 35.6 kg/m2 Results Description No Information Available Procedures Description No Information Available Medical Devices Description No Information Available Encounters Description No Information Available Assessments Date Code Description Provider 02/10/2019 [id number] Ganglion, left wrist Betty Tuttle M.D. Plan of Treatment Future Appointment(s):02/27/2019 9:45 am - Betty Tuttle M.D. at [facility] at [id number]/10/2019 - Betty Tuttle M.D.M67.432 Ganglion, left wristFollow up:Follow up: 10-14 days postop Functional Status Description No Information Available Mental Status Description No Information Available Referrals Description No Information Available
[2019-03-16] MEDS ORDERED: Ondansetron ODT TAB* 4 MG PO ONE (07:36)
[2019-03-16] MEDS ORDERED: NS 0.9% 1000 ML** 1,000 ML IV ONE (07:53)
[2019-03-16 08:06] VITALS: BP 140/70
== END 2019-03-16 08:18 | disposition short-term general hospital (02) ==
LOC: UCEAST 07:09
DX: E86.0 Dehydration (principal); R10.9 Unspecified abdominal pain; F17.210 Nicotine dependence, cigarettes, uncomplicated; R11.2 Nausea with vomiting, unspecified; R53.83 Other fatigue
CPT/HCPCS: 81003; 96360; 99213; A9270-GY; G0463

== ENCOUNTER 2019-03-16 08:36 | Emergency (ER) | payer BC ==
[2019-03-16] MEDS ORDERED: Morphine 4 MG/ML VIAL (1 ml) 4 MG/ML VIAL IV ONE (08:50)
[2019-03-16] MEDS ORDERED: Ondansetron INJ* 2 MG/ML VIAL IV ONE (08:50)
[2019-03-16] MEDS ORDERED: NS 0.9% 1000 ML** 1,000 ML IV ONE ×2 (08:51→10:09)
--- NOTE | 2019-03-16 08:54 | ED ---
Abdominal Pain/Male - HPI Summary HPI Summary: Patient is a 43-year-old male who presents emergency department for vomiting, diarrhea and abdominal pain that started yesterday. Patient denies sick contacts or recent travels. He believes he may have gotten food poisoning from Indian food. Symptoms are moderate in severity. No current modifying factors. Patient denies past medical history. - History of Current Complaint Chief Complaint: EDAbdPain Stated Complaint: VOMITING PER EMS Time Seen by Provider: 03/16/19 08:42 Hx Obtained From: Patient Pain Intensity: 8 - Allergies/Home Medications Allergies/Adverse Reactions: Allergies Allergy/AdvReac Type Severity Reaction Status Date / Time No Known Allergies Allergy Verified 03/16/19 07:18 PMH/Surg Hx/FS Hx/Imm Hx Previously Healthy: Yes Endocrine/Hematology History: Denies: Hx Diabetes Cardiovascular History: Denies: Hx Hypertension Respiratory History: Reports: Hx Asthma - as a child-, only problem as an adult is when gets a cold History: Denies: Hx Renal Disease Musculoskeletal History: Reports: Other Musculoskeletal History Sensory History: Denies: Hx Contacts or Glasses, Hx Hearing Aid Opthamlomology History: Denies: Hx Contacts or Glasses - Cancer History Hx Chemotherapy: No - Surgical History Surgery Procedure, Year, and Place: right wrist ganglion cyst removed. tonsillectomy Hx Anesthesia Reactions: No Infectious Disease History: No Infectious Disease History: Denies: Traveled Outside the [place] in Last 30 Days - Family History Known Family History: Positive: Hypertension, Non-Contributory - Social History Occupation: Employed Full-time Lives: With Family Alcohol Use: Occasionally Substance Use Type: Reports: None Hx Tobacco Use: Yes Smoking Status (MU): Light Every Day Tobacco Smoker Type: Cigarettes Amount Used/How Often: 4 cigarettes a day maybe Have You Smoked in the Last Year: Yes Review of Systems Constitutional: Negative Negative: Fever Cardiovascular: Negative Respiratory: Negative Positive: Abdominal Pain, Vomiting, Diarrhea, Nausea Genitourinary: Negative Neurological: Negative All Other Systems Reviewed And Are Negative: Yes Physical Exam Triage Information Reviewed: Yes Vital Signs On Initial Exam: Initial Vitals Temp Pulse Resp BP Pulse Ox 99.4 F 64 18 141/75 96 03/16/19 08:44 03/16/19 08:44 03/16/19 08:44 03/16/19 08:44 03/16/19 08:44 Vital Signs Reviewed: Yes Appearance: Positive: Pain Distress - Pt. lying on his left side with eyes closed. Appears in pain but nontoxic. Skin: Positive: Warm, Dry Head/Face: Positive: Normal Head/Face Inspection Eyes: Positive: Normal, EOMI Neck: Positive: Supple Respiratory/Lung Sounds: Positive: Clear to Auscultation, Breath Sounds Present Cardiovascular: Positive: Normal, RRR Abdomen Description: Positive: Other: - Abd. is slightly distended and diffusely tender with majority of pain to RLQ with guarding. Neurological: Positive: Normal, CN Intact II-III Psychiatric: Positive: Affect/Mood Appropriate Procedures - Sedation Patient Received Moderate/Deep Sedation with Procedure: No Diagnostics - Vital Signs Vital Signs Temp Pulse Resp BP Pulse Ox 03/16/19 08:44 99.4 F 64 18 141/75 96 - Laboratory Result Diagrams: 03/16/19 08:58 03/16/19 08:58 Lab Statement: Any lab studies that have been ordered have been reviewed, and results considered in the medical decision making process. Abdominal Pain Male Course/Dx - Course Course Of Treatment: Patient with vomiting, diarrhea and significant abdominal pain. He is afebrile with stable vital signs. Patient started on IV fluids, pain medication and Zofran. CBC shows leukocytosis of 13.9, lactic acid 2.4, magnesium 1.4. Given patient's pain leukocytosis CT scan obtained for further evaluation and rule out inflammatory/infectious causes. CT scan per radiology is negative for acute findings. Patient was given a total of 2 L of IV fluids and 2 g of IV mag. 1205: Reexamination patient is sleeping comfortably. He is feeling much better and is tolerating by mouth fluids. Suspect viral etiology. We'll discharge patient home with prescription for Zofran. Advised close follow-up with PCP for recheck in 2-3 days. We'll return to the ER if symptoms change or worsen. Patient understands and agrees with plan. - Diagnoses Differential Diagnosis/HQI/PQRI: Appendicitis, Bowel Obstruction, Constipation, Diverticulitis, Gall Bladder Disease, Pancreatitis Provider Diagnoses: Gastroenteritis Discharge ED - Sign-Out/Discharge Documenting (check all that apply): Patient Departure - Discharge Plan Condition: Improved Disposition: HOME Prescriptions: Ondansetron TAB* [Zofran 4 MG Tab*] 4 mg PO Q6H PRN #12 tab PRN Reason: Nausea Patient Education Materials: Dehydration (ED), Gastroenteritis (ED), Hypomagnesemia (ED) Referrals: Vikas Dickerson MD [Primary Care Provider] - Additional Instructions: Follow up with PCP in 2-3 days for recheck Zofran as directed Increase fluids with water, gatorade Return to ER if symptoms change or worsen - Billing Disposition and Condition Condition: IMPROVED Disposition: Home - Attestation Statements Provider Attestation: I was available for consultation for this patient. I did not evaluate the patient or participate in any medical decision making or disposition decisions unless I am specifically named in the chart as having consulted on the patient. If I have consulted on the patient, please see my own ED note on the patient encounter. Lydia Mcmanus MD
[2019-03-16 09:07] LABS: ABS Basophils 0.1 10^3/ul (0-0.2); ABS Lymphocytes 1.6 10^3/ul (1.0-4.8); ABS Monocytes 1.2 10^3/ul (0-0.8); ABS Neutrophils 10.9 10^3/ul (1.5-7.7); Hematocrit 43 % (42-52); Hemoglobin 14.3 g/dL (14.0-18.0); Lymphocyte % 11.4 %; Mean Corpuscular HGB Conc 34 g/dL (31-36); Mean Corpuscular Hemoglobin 30 pg (27-31); Mean Corpuscular Volume 90 fL (80-94); Mean Platelet Volume 8.7 fL (7.4-10.4); Platelet Count 224 10^3/uL (150-450); Red Blood Count 4.73 10^6 /uL (4.18-5.48); Red Cell Distribution Width 14 % (10-15); White Blood Count 13.9 10^3/uL (3.5-10.8)
[2019-03-16 09:21] LABS: ALT 29 U/L (7-52); AST 24 U/L (13-39); Albumin 4.6 g/dL (3.2-5.2); Albumin/Globulin Ratio 1.4 (1-3); Alkaline Phosphatase 55 U/L (34-104); Anion Gap 9 mmol/L (2-11); BUN/Creatinine Ratio 11.4 (8-20); Blood Urea Nitrogen 13 mg/dL (6-24); C Reactive Protein 5.97 mg/L (<8.01); CO2 Carbon Dioxide 29 mmol/L (22-32); Calcium 9.5 mg/dL (8.6-10.3); Chloride 98 mmol/L (101-111); EGFR African American 84.1 (>60); EGFR Non-African American 69.5 (>60); Globulin 3.4 g/dL (2-4); Glucose 117 mg/dL (70-100); Magnesium 1.4 mg/dL (1.9-2.7); Potassium 3.8 mmol/L (3.5-5.0); Sodium 136 mmol/L (135-145)
[2019-03-16] MEDS ORDERED: Iohexol 300* (CONTRAST) 10 ML SDV IV ONE (09:38)
[2019-03-16] MEDS ORDERED: Magnesium Sulfate 2 GM IV* 2 GM/50 ML BAG IVPB ONE (10:07)
[2019-03-16 12:20] VITALS: BP 139/80
== END 2019-03-16 12:37 | disposition home or self-care (01) ==
LOC: ED 08:36
DX: K52.9 Noninfective gastroenteritis and colitis, unspecified (principal); K76.0 Fatty (change of) liver, not elsewhere classified; R10.31 Right lower quadrant pain; F17.210 Nicotine dependence, cigarettes, uncomplicated
CPT/HCPCS: 36415; 74177; 80053; 83605; 83690; 83735; 85025; 86140; 96361; 96365; 96375; 99283; J2270; J2405; J3475; Q9967

== ENCOUNTER 2019-03-17 10:46 | Emergency (ER) | payer BC ==
[2019-03-17] MEDS ORDERED: Ondansetron ODT TAB* 4 MG PO ONE (10:57)
[2019-03-17] MEDS ORDERED: NS 0.9% 1000 ML** 1,000 ML IV ONE (11:37)
--- NOTE | 2019-03-17 11:39 | UC ---
Abdominal Pain Male HPI - HPI Summary HPI Summary: 43 yo man, assessed here yesterday and sent to the ER with vomiting and abdominal pain. CT scan of the abdomen showed fatty liver, but no acute abdominal findings. Labs showed mild elevation of WBC, mild increase in lactic acid, and serum magnesium of 1.4. Following rehydration in the ER, he improved last evening, ate some rice and meat last night. This morning he has recurrent retching and vomiting and a sense of discomfort in the upper abdomen, "like ai have to get it out". Last voided in the night, Had one loose stool this morning. and has had dry heaves with some bright red blood and clear fluids bill up. This morning he has had about 8 ounces of water and some juice. - History of Current Complaint Chief Complaint: UCAbdominalPain Stated Complaint: ABD PAIN Time Seen by Provider: 03/17/19 10:57 Hx Obtained From: Patient Onset/Duration: Sudden Onset, Lasting Days - 2 Timing: Intermittent Episodes Lasting: Severity Currently: Moderate Pain Intensity: 10 Location: Epigastric Radiates: No Character: Cramping Aggravating Factor(s): Nothing Alleviating Factor(s): Rest Associated Signs And Symptoms: Positive: Decreased Appetite, Nausea, Vomiting, Diarrhea - Allergies/Home Medications Allergies/Adverse Reactions: Allergies Allergy/AdvReac Type Severity Reaction Status Date / Time No Known Allergies Allergy Verified 03/17/19 10:56 PMH/Surg Hx/FS Hx/Imm Hx Previously Healthy: Yes - Surgical History Surgical History: Yes Surgery Procedure, Year, and Place: right wrist ganglion cyst removed. tonsillectomy - Family History Known Family History: Positive: Hypertension, Non-Contributory - Social History Occupation: Employed Full-time Lives: With Family Alcohol Use: Occasionally Substance Use Type: None Smoking Status (MU): Light Every Day Tobacco Smoker Type: Cigarettes Amount Used/How Often: 4 cigarettes a day maybe Have You Smoked in the Last Year: Yes When Did the Patient Quit Smoking/Using Tobacco: 2018 Review of Systems All Other Systems Reviewed And Are Negative: Yes Constitutional: Positive: Fatigue Skin: Positive: Negative Eyes: Positive: Negative ENT: Positive: Negative Respiratory: Positive: Negative Cardiovascular: Positive: Negative Gastrointestinal: Positive: Vomiting, Nausea Genitourinary: Positive: Negative Motor: Positive: Negative Neurovascular: Positive: Negative Musculoskeletal: Positive: Negative Neurological: Negative: Headache, Weakness Psychological: Positive: Negative Is Patient Immunocompromised?: No Physical Exam Triage Information Reviewed: Yes Appearance: Well-Nourished, Pain Distress - moderate Vital Signs: Initial Vital Signs Temp 96.4 F 03/17/19 10:49 Pulse 59 03/17/19 10:49 Resp 16 03/17/19 10:49 BP 155/84 03/17/19 10:49 Pulse Ox 99 03/17/19 10:49 Eye Exam: Normal ENT Exam: Other - moist mucous membranes. ENT: Positive: Pharynx normal, TMs normal Neck: Positive: Supple, Nontender, No Lymphadenopathy Respiratory: Positive: Lungs clear, Normal breath sounds Cardiovascular: Positive: RRR, No Murmur Abdominal Exam: Other - mild epigastric tenderness. Abdomen Description: Positive: No Organomegaly, Soft, Other: - Re-examined at 12 :55 decreased bowel sounds and mild increase in abdominal distention.. Negative : CVA Tenderness (R), CVA Tenderness (L) Bowel Sounds: Positive: Present Musculoskeletal Exam: Normal Neurological Exam: Normal Psychological Exam: Normal Skin Exam: Normal - no tenting Re-Evaluation - Re-Evaluation First Eval Re-Evaluation Time: 12:20 Change: Unchanged Second Eval Re-Evaluation Time: 12:55 Change: Worse Comment: no relief with toradol and abdominal exam shows increased bloating and firmness. Abd Pain Male Course/Dx - Course Course Of Treatment: He has had iv fluids, zofran and iv toradol with continued retching. He has worsening pain and increase in abdominal distention. Discussed and will transfer to ER via ambulance. - Differential Dx/Clinical Impression Differential Diagnosis/HQI/PQRI: Bowel Obstruction, Gall Bladder Disease, Pancreatitis Provider Diagnosis: Abdominal pain - Physician Notification/Consults Discussed Patient Care With: Christos Rosales Time Discussed With Above Provider: 12:55 Discharge ED - Sign-Out/Discharge Documenting (check all that apply): Patient Departure All imaging exams completed and their final reports reviewed: No Studies - Discharge Plan Condition: Guarded Disposition: TRANS HIGHER LVL OF CARE FAC Referrals: Vikas Dickerson MD [Primary Care Provider] - - Billing Disposition and Condition Condition: GUARDED Disposition: Trans Higher Lvl of Care Fac
[2019-03-17] MEDS ORDERED: Ketorolac INJ* 30 MG/ML 1 ML VIAL IV ONE (12:14)
[2019-03-17 13:09] VITALS: BP 157/104
== END 2019-03-17 13:25 | disposition short-term general hospital (02) ==
LOC: UCEAST 10:46
DX: R10.13 Epigastric pain (principal); R11.2 Nausea with vomiting, unspecified; R19.7 Diarrhea, unspecified; R63.8 Other symptoms and signs concerning food and fluid intake; F17.210 Nicotine dependence, cigarettes, uncomplicated
CPT/HCPCS: 96360; 96374; 99213; A9270-GY; G0463; J1885

== ENCOUNTER 2019-03-17 13:45 | Emergency (ER) | payer BC ==
[2019-03-17] MEDS ORDERED: HYDROmorphone INJ1* 1 MG/ML SYRINGE IV SLOW PU ONE (14:22)
[2019-03-17] MEDS ORDERED: Ondansetron INJ* 2 MG/ML VIAL IV ONE (14:22)
--- NOTE | 2019-03-17 14:28 | ED ---
Abdominal Pain/Male - HPI Summary HPI Summary: Pt is a 43 y/o M presenting to the ED with a chief complaint of abd pain initially onset a couple of days ago. He came here yesterday, 03/16/19, and felt better when he was sent home. This morning, his abd pain came back on and is worse than yesterday. The pain is located in the epigastrium described as pressure, and in the umbilical region described as pain. He also reports nausea and vomiting. He notes his sx worsen with deep breaths. Denies fever. - History of Current Complaint Chief Complaint: EDAbdPain Stated Complaint: ABDOMINAL PAIN PER EMS Time Seen by Provider: 03/17/19 13:58 Hx Obtained From: Patient Onset/Duration: Gradual Onset, Lasting Days, Still Present Timing: Constant, Lasting Days Severity Initially: Moderate Severity Currently: Severe Pain Intensity: 10 Pain Scale Used: 0-10 Numeric Location: Epigastric, Umbilical Character: Other: - pressure Aggravating Factor(s): Deep Breaths Alleviating Factor(s): Nothing Associated Signs And Symptoms: Positive: Nausea, Vomiting. Negative: Fever - Allergies/Home Medications Allergies/Adverse Reactions: Allergies Allergy/AdvReac Type Severity Reaction Status Date / Time No Known Allergies Allergy Verified 03/17/19 10:56 Home Medications: Home Medications NK [No Home Medications Reported] 03/17/19 [History Confirmed 03/17/19] PMH/Surg Hx/FS Hx/Imm Hx Previously Healthy: Yes Endocrine/Hematology History: Denies: Hx Diabetes Cardiovascular History: Denies: Hx Hypertension Respiratory History: Reports: Hx Asthma - as a child-, only problem as an adult is when gets a cold History: Denies: Hx Renal Disease Musculoskeletal History: Reports: Other Musculoskeletal History Sensory History: Denies: Hx Contacts or Glasses, Hx Hearing Aid Opthamlomology History: Denies: Hx Contacts or Glasses - Cancer History Hx Chemotherapy: No - Surgical History Surgery Procedure, Year, and Place: right wrist ganglion cyst removed. tonsillectomy Hx Anesthesia Reactions: No Infectious Disease History: No Infectious Disease History: Denies: Traveled Outside the [place] in Last 30 Days - Family History Known Family History: Positive: Hypertension - Social History Alcohol Use: Occasionally Hx Substance Use: No Substance Use Type: Reports: None Hx Tobacco Use: Yes Smoking Status (MU): Light Every Day Tobacco Smoker Type: Cigarettes Amount Used/How Often: 4 cigarettes a day maybe Have You Smoked in the Last Year: Yes Review of Systems Negative: Fever Positive: Abdominal Pain, Vomiting, Nausea All Other Systems Reviewed And Are Negative: Yes Physical Exam Triage Information Reviewed: Yes Vital Signs On Initial Exam: Initial Vitals Temp Pulse Resp BP Pulse Ox 98.0 F 53 22 173/100 95 03/17/19 13:48 03/17/19 13:48 03/17/19 13:48 03/17/19 13:48 03/17/19 13:48 Vital Signs Reviewed: Yes Procedures - Sedation Patient Received Moderate/Deep Sedation with Procedure: No Diagnostics - Vital Signs Vital Signs Temp Pulse Resp BP Pulse Ox 03/17/19 13:51 54 173/100 96 03/17/19 13:48 98.0 F 53 22 173/100 95 - Laboratory Result Diagrams: 03/17/19 14:34 03/17/19 14:34 Lab Statement: Any lab studies that have been ordered have been reviewed, and results considered in the medical decision making process. Abdominal Pain Male Course/Dx - Course Course Of Treatment: Mr. Zhang returned today with the return of his pain. Yesterday when he returned home from the emergency department he felt completely improved. This morning it recurred. He comes in retching and complaining of diffuse abdominal pain. He's also diffusely tender reason nontoxic in appearance with stable vitals. He is given pain medication and antinausea medicine in the form of Dilaudid and Zofran. Labs are within normal limits and he cannot completely improved with the medication and a liter of fluid. He does admit that he ate an enormous amount when he went home last night because he had not eaten all day and he was finally feeling better. He attributes today's episode to that. I recommended he follow-up or return if problems continue or worsen. - Diagnoses Provider Diagnoses: Abdominal pain Discharge ED - Sign-Out/Discharge Documenting (check all that apply): Patient Departure - Discharge Plan Condition: Stable Disposition: HOME Patient Education Materials: Acute Abdominal Pain (ED) Referrals: Vikas Dickerson MD [Primary Care Provider] - Additional Instructions: Please follow up with your primary care provider within the next 1-3 days. Return to the emergency department with any new or worsening symptoms. - Billing Disposition and Condition Condition: STABLE Disposition: Home - Attestation Statements Document Initiated by Bobe: Yes Documenting Scribe: Nataliia Gunn Provider For Whom Scribe is Documenting (Include Credential): Christos Rosales MD. Scribe Attestation: Nataliia Fernandez, scribed for Christos Rosales MD. on 03/17/19 at 1906. Scribe Documentation Reviewed: Yes Provider Attestation: The documentation as recorded by the scribe, Nataliia Gunn accurately reflects the service I personally performed and the decisions made by me, Christos Rosales MD. Status of Scribe Document: Viewed
[2019-03-17 14:44] LABS: ABS Lymphocytes 1.3 10^3/ul (1.0-4.8); ABS Monocytes 0.4 10^3/ul (0-0.8); ABS Neutrophils 5.7 10^3/ul (1.5-7.7); Hematocrit 41 % (42-52); Hemoglobin 13.9 g/dL (14.0-18.0); Lymphocyte % 17.6 %; Mean Corpuscular HGB Conc 34 g/dL (31-36); Mean Corpuscular Hemoglobin 31 pg (27-31); Mean Corpuscular Volume 90 fL (80-94); Mean Platelet Volume 8.8 fL (7.4-10.4); Nucleated Red Blood Cells % 0.1; Platelet Count 214 10^3/uL (150-450); Red Blood Count 4.52 10^6 /uL (4.18-5.48); Red Cell Distribution Width 13 % (10-15); White Blood Count 7.5 10^3/uL (3.5-10.8)
[2019-03-17 14:59] LABS: ALT 30 U/L (7-52); AST 28 U/L (13-39); Albumin 4.3 g/dL (3.2-5.2); Albumin/Globulin Ratio 1.4 (1-3); Alkaline Phosphatase 47 U/L (34-104); Anion Gap 5 mmol/L (2-11); BUN/Creatinine Ratio 10.7 (8-20); Blood Urea Nitrogen 13 mg/dL (6-24); C Reactive Protein 2.36 mg/L (<8.01); CO2 Carbon Dioxide 30 mmol/L (22-32); Chloride 102 mmol/L (101-111); EGFR African American 78.5 (>60); EGFR Non-African American 64.8 (>60); Globulin 3.1 g/dL (2-4); Glucose 128 mg/dL (70-100); Potassium 3.7 mmol/L (3.5-5.0); Sodium 137 mmol/L (135-145); Total Protein 7.4 g/dL (6.4-8.9)
[2019-03-17 15:54] VITALS: BP 118/73
== END 2019-03-17 16:30 | disposition home or self-care (01) ==
LOC: ED 13:45
DX: R10.9 Unspecified abdominal pain (principal); F17.210 Nicotine dependence, cigarettes, uncomplicated
CPT/HCPCS: 36415; 80053; 83605; 83690; 85025; 86140; 96374; 96375; 99283; J1170; J2405

== ENCOUNTER 2019-03-18 12:30 | Emergency (ER) | payer BC ==
[2019-03-18 13:06] VITALS: BP 167/100
--- NOTE | 2019-03-18 13:46 | UC ---
Abdominal Pain Male HPI - HPI Summary HPI Summary: 43 yo male presents with abdominal pain and vomiting. He has been seen here and yesterday 03/17 for this same issue and was sent to the hospital each time. He tells me that workup there has been normal and the only thing that relieved his vomiting and discomfort was dilaudid. He has been taking zofran and tried IVF with reglan with no relief. He states that he feels food and poop are stuck in his belly. Has not eaten today. Last BM was this morning, but was small and hard. Denies fever, SOB, chest pain, back pain. - History of Current Complaint Chief Complaint: UCAbdominalPain Stated Complaint: ABDOMINAL PAIN AND NAUSEA Time Seen by Provider: 03/18/19 13:46 Hx Obtained From: Patient Onset/Duration: Sudden Onset Severity Initially: Severe Severity Currently: Severe Pain Intensity: 8 Pain Scale Used: 0-10 Numeric - Allergies/Home Medications Allergies/Adverse Reactions: Allergies Allergy/AdvReac Type Severity Reaction Status Date / Time No Known Allergies Allergy Verified 03/18/19 13:06 Home Medications: Home Medications Ondansetron HCl [Zofran 4 MG TAB] 1 tab PO ONCE PRN 03/18/19 [History Confirmed 03/18/19] PMH/Surg Hx/FS Hx/Imm Hx - Additional Past Medical History Additional PMH: None - Surgical History Surgical History: Yes Surgery Procedure, Year, and Place: right wrist ganglion cyst removed. tonsillectomy - Family History Known Family History: Positive: Hypertension - Social History Lives: With Family Alcohol Use: Occasionally Substance Use Type: None Smoking Status (MU): Light Every Day Tobacco Smoker Type: Cigarettes Amount Used/How Often: 2 cigarettes a day maybe Have You Smoked in the Last Year: Yes When Did the Patient Quit Smoking/Using Tobacco: 2018 Household Exposure Type: Cigarettes Review of Systems All Other Systems Reviewed And Are Negative: No Constitutional: Positive: Negative Skin: Positive: Negative Respiratory: Positive: Negative Cardiovascular: Positive: Negative Gastrointestinal: Positive: Abdominal Pain, Vomiting, Nausea Genitourinary: Positive: Negative Neurovascular: Positive: Negative Neurological: Positive: Negative Psychological: Positive: Negative Physical Exam - Summary Physical Exam Summary: GENERAL: Mild pain distress. SKIN: No rashes, sores, lesions, or open wounds. NECK: Supple. Nontender. No lymphadenopathy. CHEST: CTAB. No r/r/w. No accessory muscle use. Breathing comfortably and in no distress. CV: RRR. Pulses intact. Cap refill <2seconds ABDOMEN: Soft. NTTP. No distention or guarding. No organomegaly. No CVA tenderness. Bowel sounds present NEURO: Alert. PSYCH: Age appropriate behavior. Triage Information Reviewed: Yes Vital Signs: Initial Vital Signs Temp 97.9 F 03/18/19 13:03 Pulse 57 03/18/19 13:03 Resp 18 03/18/19 13:03 BP 167/100 03/18/19 13:03 Pulse Ox 100 03/18/19 13:03 Vital Signs Reviewed: Yes Abd Pain Male Course/Dx - Course Course Of Treatment: Offered IVF and nausea medication in the clinic, but pt declined and is asking for dilaudid. I discussed with him that we do not have medication of that magnitude here and that is likely masking his symptoms. He asked his son to drive him to the ER. Pt eloped. - Differential Dx/Clinical Impression Provider Diagnosis: Vomiting Discharge ED - Sign-Out/Discharge Documenting (check all that apply): Patient Departure All imaging exams completed and their final reports reviewed: No Studies - Discharge Plan Condition: Stable Disposition: ELOPEMENT Referrals: Vikas Dickerson MD [Primary Care Provider] - Additional Instructions: Please go to the ER for further evaluation for your abdominal pain - Billing Disposition and Condition Condition: STABLE Disposition: Elopement
== END 2019-03-18 13:50 | disposition home or self-care (01) ==
LOC: UCEAST 12:30
DX: R11.2 Nausea with vomiting, unspecified (principal); R10.9 Unspecified abdominal pain; F17.210 Nicotine dependence, cigarettes, uncomplicated
CPT/HCPCS: 99212; G0463

== ENCOUNTER 2019-03-18 14:08 | Emergency (ER) | payer BC ==
[2019-03-18] MEDS ORDERED: NS 0.9% 1000 ML** 1,000 ML IV ONE (15:37)
[2019-03-18] MEDS ORDERED: Famotidine IV* 10 MG/ML 2 ML (20 mg) IV SLOW PU ONE (15:37)
[2019-03-18] MEDS ORDERED: Ketorolac INJ* 30 MG/ML 1 ML VIAL IV PUSH ONE (15:37)
[2019-03-18] MEDS ORDERED: Ondansetron INJ* 2 MG/ML VIAL IV ONE (15:37)
[2019-03-18] MEDS ORDERED: Morphine INJ* 4 MG/ML 1 ML SYRINGE (NEW SYRINGE VERSION) IV ONE (15:38)
--- NOTE | 2019-03-18 15:42 | ED ---
Abdominal Pain/Male - HPI Summary HPI Summary: Pt is a 43 y/o M presenting to the ED with a chief complaint of abd pain, accompanied by nausea, vomiting, and diarrhea. Pt has been here 3x for the same sx, including subjective fever and chills. He has taken some Zofran but it has not stayed down. He denies SOB. Patient was in the emergency department the last 2 days. Patient did have a CT scan on 03/16/19 showed nothing concerning. Patient has not taken any analgesia. He last drank alcohol this past weekend , and occasionally smokes cigarettes. He denies trauma to the abd. He states continues to send him here d/t not being able to treat him there. NKDA. Pts medications reviewed this visit. - History of Current Complaint Chief Complaint: EDAbdPain Stated Complaint: ABD PAIN/VOMITING/DIARREA PER PT Time Seen by Provider: 03/18/19 15:26 Hx Obtained From: Patient, Medical Records Onset/Duration: Sudden Onset, Lasting Hours, Still Present Timing: Intermittent, Lasting Hours Severity Initially: Moderate Severity Currently: Severe Pain Intensity: 8 Pain Scale Used: 0-10 Numeric Location: Discrete At: RLQ, Discrete At: LLQ Radiates: No Aggravating Factor(s): Nothing Alleviating Factor(s): Medications Associated Signs And Symptoms: Positive: Fever, Nausea, Vomiting, Diarrhea - Allergies/Home Medications Allergies/Adverse Reactions: Allergies Allergy/AdvReac Type Severity Reaction Status Date / Time No Known Allergies Allergy Verified 03/18/19 14:13 PMH/Surg Hx/FS Hx/Imm Hx Previously Healthy: Yes Endocrine/Hematology History: Denies: Hx Diabetes Cardiovascular History: Denies: Hx Hypertension Respiratory History: Reports: Hx Asthma - as a child-, only problem as an adult is when gets a cold History: Denies: Hx Renal Disease Musculoskeletal History: Reports: Other Musculoskeletal History Sensory History: Denies: Hx Contacts or Glasses, Hx Hearing Aid Opthamlomology History: Denies: Hx Contacts or Glasses - Cancer History Hx Chemotherapy: No - Surgical History Surgery Procedure, Year, and Place: right wrist ganglion cyst removed. tonsillectomy Hx Anesthesia Reactions: No Infectious Disease History: No Infectious Disease History: Denies: Traveled Outside the [place] in Last 30 Days - Family History Known Family History: Positive: Hypertension, Non-Contributory - Social History Occupation: Employed Full-time - construction Lives: With Family - daycare Alcohol Use: Occasionally Hx Substance Use: No Substance Use Type: Reports: None Hx Tobacco Use: Yes Smoking Status (MU): Light Every Day Tobacco Smoker Type: Cigarettes Amount Used/How Often: 2 cigarettes a day maybe Have You Smoked in the Last Year: Yes Review of Systems Positive: Fever, Chills Negative: Shortness Of Breath Positive: Abdominal Pain, Vomiting, Diarrhea, Nausea All Other Systems Reviewed And Are Negative: Yes Physical Exam - Summary Physical Exam Summary: Vital Signs Reviewed: Yes A+Ox3, wretching, Eyes: Conjunctiva Clear, ADAL. EOM intact and full ENT: Hearing grossly normal TM x 2 clear, mmoist, uvula midline, no exudate, no erythema Neck: Positive: Supple Respiratory: Positive: No respiratory distress, No accessory muscle use + CTA throughout no w/r Cardiovascular: RRR nl s1, s2 no m/r CBT <2 sec abd soft + BS nd, mild epigastric, RUQ pain no guarding, no rebound Musculoskeletal Exam: HOWELL x 4 without difficulty Strength Intact, ROM Intact Neurological: Positive: Alert, + sensation throughout Psychological: Positive: Normal Response To examiner Skin: Positive: no rash, no ecchymosis Triage Information Reviewed: Yes Vital Signs On Initial Exam: Initial Vitals Temp Pulse Resp BP Pulse Ox 98.5 F 57 16 178/98 98 03/18/19 14:09 03/18/19 14:09 03/18/19 14:09 03/18/19 14:09 03/18/19 14:09 Vital Signs Reviewed: Yes Procedures - Sedation Patient Received Moderate/Deep Sedation with Procedure: No Diagnostics - Vital Signs Vital Signs Temp Pulse Resp BP Pulse Ox 03/18/19 14:09 98.5 F 57 16 178/98 98 - Laboratory Result Diagrams: 03/18/19 15:50 03/18/19 15:52 Lab Statement: Any lab studies that have been ordered have been reviewed, and results considered in the medical decision making process. - Ultrasound US Abd Ultrasound Interpretation Completed By: Radiologist Summary of Ultrasound Findings: Fatty infiltration of the liver. ED physician has reviewed this report. Re-Evaluation - Re-Evaluation 1st re-eval Re-Evaluation Time: 16:19 Change: Improved Comment: Pt states he is feeling much better. pain improved. no further vomiting. no current needs. son in room at bedside 2nd re-eval Re-Evaluation Time: 17:29 Change: Improved Comment: Pt will be providing a urine sample. Will give prescription for Pepcid and Zofran. Pt has Tramadol Rx at home. pt comfortable and in agreement with plan Third Eval Re-Evaluation Time: 18:05 Comment: urine removed. no vomiting with po crackers, ice chips. will discharge Abdominal Pain Male Course/Dx - Course Course Of Treatment: Patient presents to urgent care for evaluation of epigastric pain with nausea and vomiting. Patient seen in the ED twice for the same symptoms. Patient states he is given a prescription of Zofran but was not ODT and therefore he was throwing up. Patient has not taken anything for pain. Patient's reports tactile fevers. No rash no sick contacts no trauma. Vital signs stable. Patient actively retching in the room. Patient with mild epigastric and Klonopin. Review the labs as well as imaging studies from . We will give patient Pepcid, Toradol, Zofran, and morphine. Discussed with patient will only redose morphine once during this hospital stay for total of 2 doses. Patient stated understanding and agreement. Willl check ultrasound for RUQ pain - Diagnoses Provider Diagnoses: Nausea & vomiting, Epigastric pain Discharge ED - Sign-Out/Discharge Documenting (check all that apply): Patient Departure - Discharge Plan Condition: Stable Disposition: HOME Prescriptions: Famotidine TAB* [Pepcid 20 MG TAB*] 20 mg PO DAILY #12 tab Ondansetron ODT TAB* [Zofran 4 MG Odt TAB*] 4 mg PO Q4H PRN #10 tab.odt PRN Reason: Nausea Forms: *Work Release Referrals: Vikas Dickerson MD [Primary Care Provider] - [facility] [Outside] Additional Instructions: - For the first 6 hours, eat and drink clears (water, kallie dalila, soup broth, jello, popsicles, Gatorade). If you tolerate this okay, add bland foods such as dry toast, scrambled eggs, crackers. Wait until you are feeling better for 24 hours before eating spicy food, acidic food, tomato based food, fried food. - Avoid alcohol until you are feeling better - Okay to take Tramadol as you have previously prescribed for pain - Take pepcid twice daily as prescribed - Take nausea medication as prescribed - Contact your doctor tomorrow to schedule a follow-up appointment this week. If you are unable to get an appointment, contact the [facility] for an appointment - Billing Disposition and Condition Condition: STABLE Disposition: Home - Attestation Statements Document Initiated by Jackie: Yes Documenting Scribe: Nataliia Gunn Provider For Whom Jackie is Documenting (Include Credential): Iraida Lopez MD. Scribe Attestation: INataliia, scribed for Iraida Lopez MD. on 03/18/19 at 1833. Scribe Documentation Reviewed: Yes Provider Attestation: The documentation as recorded by the Nataliia monique accurately reflects the service I personally performed and the decisions made by me, Iraida Lopez MD. Status of Scribe Document: Viewed
[2019-03-18] MEDS ORDERED: Morphine 4 MG/ML VIAL (1 ml) 4 MG/ML VIAL ONE (15:52)
[2019-03-18] MEDS ORDERED: Morphine 4 MG/ML VIAL (1 ml) 4 MG/ML VIAL IV ONE (15:53)
[2019-03-18 16:54] LABS: ABS Lymphocytes 1.9 10^3/ul (1.0-4.8); ABS Neutrophils 6.7 10^3/ul (1.5-7.7); Hematocrit 42 % (42-52); Hemoglobin 14.2 g/dL (14.0-18.0); Lymphocyte % 19.8 %; Mean Corpuscular HGB Conc 34 g/dL (31-36); Mean Corpuscular Hemoglobin 30 pg (27-31); Mean Corpuscular Volume 89 fL (80-94); Mean Platelet Volume 9.5 fL (7.4-10.4); Nucleated Red Blood Cells % 0.2; Platelet Count 221 10^3/uL (150-450); Red Blood Count 4.65 10^6 /uL (4.18-5.48); Red Cell Distribution Width 13 % (10-15); White Blood Count 9.7 10^3/uL (3.5-10.8)
[2019-03-18 17:05] LABS: Albumin 4.2 g/dL (3.2-5.2); Anion Gap 7 mmol/L (2-11); CO2 Carbon Dioxide 30 mmol/L (22-32); Calcium 9.2 mg/dL (8.6-10.3); Chloride 98 mmol/L (101-111); Magnesium 1.7 mg/dL (1.9-2.7); Potassium 3.8 mmol/L (3.5-5.0); Sodium 135 mmol/L (135-145)
[2019-03-18 17:11] LABS: ALT 29 U/L (7-52); AST 28 U/L (13-39); Albumin/Globulin Ratio 1.3 (1-3); Alkaline Phosphatase 49 U/L (34-104); BUN/Creatinine Ratio 10.4 (8-20); Blood Urea Nitrogen 12 mg/dL (6-24); EGFR African American 83.2 (>60); EGFR Non-African American 68.8 (>60); Globulin 3.2 g/dL (2-4); Glucose 106 mg/dL (70-100); Total Protein 7.4 g/dL (6.4-8.9)
[2019-03-18] MEDS ORDERED: traMADol TAB* 50 MG PO ONE (17:28)
[2019-03-18 18:21] LABS: Urine Appearance Clear; Urine Bilirubin Negative (Negative); Urine Blood Negative (Negative); Urine Color Yellow; Urine Glucose Negative (Negative); Urine Ketones 1+ (Negative); Urine Nitrite Negative (Negative); Urine Protein Negative (Negative); Urine Urobilinogen Positive (Negative)
[2019-03-18 18:35] VITALS: BP 128/75
== END 2019-03-18 18:29 | disposition home or self-care (01) ==
LOC: ED 14:08
DX: R11.2 Nausea with vomiting, unspecified (principal); R10.13 Epigastric pain; R10.11 Right upper quadrant pain; R50.9 Fever, unspecified; K76.0 Fatty (change of) liver, not elsewhere classified; F17.210 Nicotine dependence, cigarettes, uncomplicated
CPT/HCPCS: 36415; 76705; 80053; 81003; 83690; 83735; 85025; 96361; 96374; 96375; 99282; A9270-GY; J1885; J2270; J2405

== ENCOUNTER 2019-03-20 10:04 | Emergency (ER) | payer BC ==
[2019-03-20 11:02] VITALS: BP 142/89
--- NOTE | 2019-03-20 11:27 | UC ---
Eye Complaint HPI - HPI Summary HPI Summary: 43-year-old male who has had the stomach bug earlier this week and today he awakened with his right eye swollen. He denies any injury. He denies any visual changes. He has improved from the stomach. - History of Current Complaint Chief Complaint: UCEye Stated Complaint: EYE ISSUE Time Seen by Provider: 03/20/19 11:26 Hx Obtained From: Patient Onset/Duration: Gradual Onset Timing: Constant Severity Initially: Mild Severity Currently: Mild Pain Intensity: 3 Location of Injury: Other - No injury pain. Aggravating Factor(s): Nothing Alleviating Factor(s): Nothing Associated Signs And Symptoms: Positive: Swelling - Very mild swelling of the eyelids. - Allergies/Home Medications Allergies/Adverse Reactions: Allergies Allergy/AdvReac Type Severity Reaction Status Date / Time No Known Allergies Allergy Verified 03/20/19 11:02 PMH/Surg Hx/FS Hx/Imm Hx Previously Healthy: Yes Respiratory History: Asthma - Childhood asthma. - Surgical History Surgical History: Yes Surgery Procedure, Year, and Place: right wrist ganglion cyst removed. tonsillectomy - Family History Known Family History: Positive: Hypertension, Non-Contributory - Social History Alcohol Use: Occasionally Substance Use Type: None Smoking Status (MU): Light Every Day Tobacco Smoker Type: Cigarettes Amount Used/How Often: 2 cigarettes a day maybe Have You Smoked in the Last Year: Yes When Did the Patient Quit Smoking/Using Tobacco: 2018 Household Exposure Type: Cigarettes Review of Systems All Other Systems Reviewed And Are Negative: Yes Eyes: Positive: Other - Mild swelling of both eyelids. Is Patient Immunocompromised?: No Physical Exam Triage Information Reviewed: Yes Appearance: Well-Appearing, No Pain Distress Vital Signs: Initial Vital Signs Temp 98 F 03/20/19 10:59 Pulse 57 03/20/19 10:59 Resp 16 03/20/19 10:59 BP 142/89 03/20/19 10:59 Pulse Ox 100 03/20/19 10:59 Vital Signs Reviewed: Yes Eyes: Positive: Conjunctiva Clear, Other: - PERRLA, EOMI, there is a small reddened area at the upper inner canthus of the right eyelid which may be a developing stye. Globus intact. Mild edema to both eyelids the right more than the left. Nontender on palpation. No erythema or cellulitis of the orbit. ENT: Positive: Hearing grossly normal, Pharynx normal, TMs normal, Uvula midline Neck: Positive: Supple, Nontender, No Lymphadenopathy Skin Exam: Normal Skin: Positive: Other - See above notes. Eye Complaint Course/Dx - Course Course Of Treatment: Patient is comfortable here. I explained to him this may be a mild edema due to an insect bite however I'm unable to visualize a bite. He does have a reddened area in the upper inner eyelid which may be a developing stye and I'm going to treat him with antibiotic eyedrops for that with a follow-up with his primary care provider or bean sorter if no improvement or if worsening symptoms. - Differential Dx/Diagnosis Provider Diagnosis: Hordeolum of right eye Discharge ED - Sign-Out/Discharge Documenting (check all that apply): Patient Departure All imaging exams completed and their final reports reviewed: No Studies - Discharge Plan Condition: Good Disposition: HOME Prescriptions: Tobramycin 0.3% OPHTH.LOUIE* 1 drop RIGHT EYE Q4H 7 Days #1 btl Patient Education Materials: Kaylie (ED) Referrals: Vikas Dickerson MD [Primary Care Provider] - Ananth Kolb MD [Medical Doctor] - Additional Instructions: Cold compresses to the area. Follow-up with your primary care provider or bean sorter if no improvement in 3 or 4 days. - Billing Disposition and Condition Condition: GOOD Disposition: Home
== END 2019-03-20 11:35 | disposition home or self-care (01) ==
LOC: UCEAST 10:04
DX: H00.011 Hordeolum externum right upper eyelid (principal); F17.210 Nicotine dependence, cigarettes, uncomplicated
CPT/HCPCS: 99212; G0463